=== PATIENT | female | born 1960 | race Caucasian/White ===

== ENCOUNTER 2023-03-01 14:45 | Emergency (ER) | payer MEDICAID ==
[~2023-03-01] VITALS: Ht 165.1 cm; Wt 68.0 kg
[~2023-03-01 14:45] MED LIST: ASPI-1457; ATEN-167 PO; LOSA50TA28; NIFE90TA48 PO; PARO-41 PO; RANI150T8 PO
[2023-03-01 14:55] VITALS: BP_SYST 133; PULSE 86; RESP 16; TEMP 98.2; O2SAT 98
[2023-03-01 17:22] LABS: BASOPHILS # (AUTO) 0.1 K/uL (0.0-0.2); BASOPHILS % (AUTO) 0.9 % (0.0-2.0); EOSINOPHILS # (AUTO) 0.2 K/uL (0.0-0.4); HEMATOCRIT 41.4 % (36-48); HEMOGLOBIN 14.3 g/dL (12.0-16.0); LYMPHOCYTES # (AUTO) 2.7 K/uL (1.0-5.5); LYMPHOCYTES % (AUTO) 27.1 % (20.5-51.5); MEAN CORPUSCULAR HEMOGLOBIN 30 pg (27-31); MEAN CORPUSCULAR HGB CONC 35 % (32-36); MEAN CORPUSCULAR VOLUME 87 fL (79.0-98.0); MONOCYTES # (AUTO) 0.5 K/uL (0.0-1.0); MONOCYTES % (AUTO) 5.6 % (1.7-9.3); NEUTROPHILS # (AUTO) 6.3 K/uL (1.8-7.7); NEUTROPHILS % (AUTO) 64.4 % (40.0-70.0); PLATELET COUNT (AUTO) 289 K/uL (130-430); RED BLOOD CELL COUNT(AUTO) 4.77 MIL/uL (4.2-6.2); RED CELL DISTRIBUTION WIDTH 14.4 % (9.0-15.0); WHITE BLOOD COUNT (AUTO) 9.8 K/uL (4.8-10.8)
[2023-03-01 17:54] LABS: PROTHROMBIN TIME 10.1 SECS (9.5-12.5)
[2023-03-01 18:06] LABS: ALBUMIN 4.1 g/dL (3.4-4.8); CALCIUM 9.7 mg/dL (8.4-11.0); CREATININE 0.56 mg/dL (0.55-1.30); TOTAL BILIRUBIN 1.3 mg/dL (0.0-1.0)
[2023-03-01 19:24] VITALS: BP_SYST 130; PULSE 83; RESP 16; TEMP 98.2; O2SAT 98
== END 2023-03-01 19:24 | disposition home or self-care (01) ==
LOC: SED 14:45
DX: S80.12XA Contusion of left lower leg, initial encounter (principal); I10 Essential (primary) hypertension; Z79.899 Other long term (current) drug therapy; X58.XXXA Exposure to other specified factors, initial encounter; Y93.89 Activity, other specified; Y92.89 Other specified places as the place of occurrence of the external cause; Y99.8 Other external cause status
CPT/HCPCS: 36415; 80053; 85025; 85610-TC; 85730-TC; 99283